=== PATIENT | female | born 1945 | race Caucasian/White ===

== ENCOUNTER 2023-06-25 12:53 | Inpatient (IN) | payer MEDICARE ==
[~2023-06-25] VITALS: Ht 172.7 cm; Wt 66.2 kg
[2023-06-25] MEDS ORDERED: ONDANSETRON 4 MG/2 ML VIAL ONE (13:06)
[2023-06-25] MEDS ORDERED: MORPHINE SULFATE 4 MG/1 ML DISP.SYRIN ONE ×2 (13:07→14:12)
[2023-06-25] MEDS: ONDANSETRON 4 MG/2 ML VIAL IV ONE (13:07)
[2023-06-25] MEDS: MORPHINE SULFATE 4 MG/1 ML DISP.SYRIN IV ONE ×2 (13:10→14:18)
[2023-06-25] MEDS ORDERED: SIMV-46 PO (14:34)
[2023-06-25] MEDS ORDERED: LISI40TA13 PO (14:34)
[2023-06-25 15:14] LABS: ALBUMIN 3.5 g/dL (3.4-5.0); BILIRUBIN,TOTAL 0.4 mg/dL (0.2-1.0); CALCIUM 8.7 mg/dL (8.5-10.1); CREATININE 0.7 mg/dL (0.6-1.3); POTASSIUM 4.2 mmol/L (3.5-5.1); TOTAL PROTEIN, SERUM 6.7 g/dL (6.4-8.2)
[2023-06-25 15:19] LABS: MEAN CORPUSCULAR VOLUME 82.4 fL (75.5-95.3)
[2023-06-25 15:29] LABS: BASOPHILS % (AUTO) 2.1 % (0.0-2.0); EOSINOPHILS % (AUTO) 3.3 % (0.0-7.0); HEMATOCRIT 37.9 % (31.2-41.9); LYMPHOCYTES # (AUTO) 0.5 K/uL (0.8-4.8); LYMPHOCYTES % (AUTO) 62.9 % (20.5-51.5); MEAN CORPUSCULAR HEMOGLOBIN 28.3 uug (24.7-32.8); MEAN CORPUSCULAR HGB CONC 34 g/dL (32.3-35.6); NEUTROPHILS # (AUTO) 0.2 K/uL (1.8-8.9); NEUTROPHILS % (AUTO) 27.7 % (38.5-71.5); PLATELET COUNT (AUTO) 118 K/uL (179-408); RED CELL DISTRIBUTION WIDTH 14.6 % (12.3-17.7)
[2023-06-25 15:31] LABS: DIFFERENTIAL COMMENT 1
[2023-06-25 15:33] LABS: WHITE BLOOD COUNT (AUTO) 0.9 K/uL (3.8-11.8)
[2023-06-25 16:51] LABS: LYMPHOCYTES % (MANUAL) 64 % (20-40); MONOCYTES % (MANUAL) 9 % (2-10); NEUTROPHILS % (MANUAL) 27 % (42-75)
[2023-06-25 16:52] LABS: PLATELET ESTIMATE DECREASED
[2023-06-25 16:53] LABS: ANISOCYTOSIS 1+; OVALOCYTES 1+
[2023-06-25] MEDS: DOCUSATE SODIUM 100 MG CAPSULE PO SCH (20:47)
[2023-06-25] MEDS: BACITRACIN/POLYMYXIN B OINT 15 GM TUBE TOP SCH (20:52)
[2023-06-25] MEDS: HYDROCODONE/APAP 5-325MG TABLET PO PRN (21:39)
[2023-06-26 00:30] VITALS: BP 111/76; TEMP 98.6
[2023-06-26] MEDS: MORPHINE SULFATE 2 MG/1 ML DISP.SYRIN IV PRN (02:21)
[2023-06-26] MEDS: ONDANSETRON 4 MG/2 ML VIAL IV PRN (02:30)
[2023-06-26 05:29] VITALS: BP 106/63; TEMP 98.6
[2023-06-26 07:19] LABS: BASOPHILS % (AUTO) 2.2 % (0.0-2.0); HEMATOCRIT 31.5 % (31.2-41.9); LYMPHOCYTES # (AUTO) 0.5 K/uL (0.8-4.8); LYMPHOCYTES % (AUTO) 52.7 % (20.5-51.5); MEAN CORPUSCULAR HEMOGLOBIN 28.6 uug (24.7-32.8); MEAN CORPUSCULAR HGB CONC 35 g/dL (32.3-35.6); MEAN CORPUSCULAR VOLUME 81.9 fL (75.5-95.3); MONOCYTES # (AUTO) 0.2 K/uL (0.1-1.30); NEUTROPHILS # (AUTO) 0.3 K/uL (1.8-8.9); NEUTROPHILS % (AUTO) 24.1 % (38.5-71.5); PLATELET COUNT (AUTO) 120 K/uL (179-408); RED BLOOD CELL COUNT(AUTO) 3.84 MIL/uL (3.63-4.92); RED CELL DISTRIBUTION WIDTH 14.4 % (12.3-17.7)
[2023-06-26 07:30] VITALS: BP 101/58; TEMP 98.1; O2SAT 96
[2023-06-26 07:34] LABS: ALBUMIN 2.9 g/dL (3.4-5.0); BILIRUBIN,TOTAL 0.6 mg/dL (0.2-1.0); CALCIUM 8.3 mg/dL (8.5-10.1); CREATININE 0.7 mg/dL (0.6-1.3); MAGNESIUM 1.7 mg/dL (1.8-2.4); PHOSPHOROUS 3.6 mg/dL (2.5-4.9); POTASSIUM 4.1 mmol/L (3.5-5.1); TOTAL PROTEIN, SERUM 5.8 g/dL (6.4-8.2)
[2023-06-26 08:16] LABS: DIFFERENTIAL COMMENT 1
[2023-06-26] MEDS: PANTOPRAZOLE SODIUM 40 MG VIAL IV SCH (09:05)
[2023-06-26 09:10] LABS: LYMPHOCYTES % (MANUAL) 58 % (20-40); MONOCYTES % (MANUAL) 16 % (2-10); NEUTROPHILS % (MANUAL) 26 % (42-75); PLATELET ESTIMATE DECREASED
[2023-06-26] MEDS: MAGNESIUM SULFATE/D5W 100 ML IV SCH (10:27)
[2023-06-26 11:14] VITALS: BP 114/63; TEMP 99.9; O2SAT 96
[2023-06-26] MEDS ORDERED: FILGRASTIM 300 MCG/ML VIAL SUBCUT ONE (12:45)
[2023-06-26 13:41] LABS: THYROID STIMULATING HORMONE 1.731 mIU/mL (0.358-3.740)
[2023-06-26] MEDS: TBO-FILGRASTIM 300 MCG/0.5 ML SYRINGE SQ ONE (13:57)
[2023-06-26] MEDS: ENOXAPARIN SODIUM 40 MG/0.4 ML DISP.SYRIN SQ SCH (13:58)
[2023-06-26 14:07] LABS: *BILIRUBIN,URIN 1+ (NEGATIVE); *BLOOD, URINE TRACE (NEGATIVE); *CLARITY,URINE CLEAR (CLEAR); *COLOR,URINE YELLOW (YELLOW); *KETONES,URINE 1+ (NEGATIVE); *PROTEIN,URINE NEGATIVE (NEGATIVE); *UROBILINOGEN,URINE 0.2 E.U./dl (NORMAL); LEUKOCYTE ESTERASE ,URINE NEGATIVE (NEGATIVE); NITRITE, URINE NEGATIVE (NEGATIVE); PH,URINE 5.5 (5.0-8.0); UGLUCOSE NEGATIVE (NEGATIVE)
[2023-06-26 14:56] LABS: BACTERIA,URINE FEW /HPF (NONE SEEN); SQUAMOUS EPITHELIAL CELL,UR FEW /HPF (NONE SEEN); WBC,URINE 0-3 /HPF (0-3)
[2023-06-26] MEDS: ACETAMINOPHEN 325 MG TABLET PO PRN (15:29)
[2023-06-26 15:44] VITALS: BP 123/62; TEMP 100.8; O2SAT 96
[2023-06-26] MEDS: CEFEPIME HCL 1 G in IV DEXTROSE 5% 50 ML IV SCH (16:50)
[2023-06-26 19:45] VITALS: BP 110/61; TEMP 98.5; O2SAT 98
[2023-06-26] MEDS: VANCOMYCIN IV 1,000 MG in IV DEXTROSE 5% 250 ML IV SCH (22:04)
[2023-06-27] VITALS (8 sets, daily range): BP systolic 102–125; BP diastolic 57–65; TEMP 97.3–99.2; O2SAT 93–100
[2023-06-27] MEDS ORDERED: VANCOMYCIN 1000 MG VIAL ONE (06:06)
[2023-06-27] MEDS ORDERED: FENTANYL CITRATE 100 MCG/2 ML AMPUL ONE ×2 (06:34→07:40)
[2023-06-27] MEDS ORDERED: MIDAZOLAM HCL 2 MG/2 ML VIAL ONE (06:35)
[2023-06-27 06:43] LABS: CALCIUM 8.2 mg/dL (8.5-10.1); CARBON DIOXIDE 25 mmol/L (21-32); CHLORIDE 100 mmol/L (98-107); CREATININE 0.7 mg/dL (0.6-1.3); GLUCOSE 133 mg/dL (74-106); SODIUM SERUM 133 mmol/L (136-145); UREA NITROGEN, BLOOD 12 mg/dL (7-18)
[2023-06-27 06:51] LABS: BASOPHILS % (AUTO) 0.2 % (0.0-2.0); HEMATOCRIT 29.5 % (31.2-41.9); HEMOGLOBIN 10.5 g/dL (10.9-14.3); LYMPHOCYTES # (AUTO) 0.4 K/uL (0.8-4.8); LYMPHOCYTES % (AUTO) 6.1 % (20.5-51.5); MEAN CORPUSCULAR HEMOGLOBIN 29.3 uug (24.7-32.8); MEAN CORPUSCULAR HGB CONC 36 g/dL (32.3-35.6); MEAN CORPUSCULAR VOLUME 82.1 fL (75.5-95.3); MONOCYTES # (AUTO) 0.5 K/uL (0.1-1.30); MONOCYTES % (AUTO) 6.9 % (0.0-11.0); NEUTROPHILS # (AUTO) 6.2 K/uL (1.8-8.9); NEUTROPHILS % (AUTO) 86.8 % (38.5-71.5); PLATELET COUNT (AUTO) 99 K/uL (179-408); RED BLOOD CELL COUNT(AUTO) 3.59 MIL/uL (3.63-4.92); RED CELL DISTRIBUTION WIDTH 14.9 % (12.3-17.7); WHITE BLOOD COUNT (AUTO) 7.2 K/uL (3.8-11.8)
[2023-06-27 06:56] LABS: DIFFERENTIAL COMMENT 1
[2023-06-27 07:20] LABS: MAGNESIUM 1.8 mg/dL (1.8-2.4); PHOSPHOROUS 3.1 mg/dL (2.5-4.9)
[2023-06-27 07:35] LABS: C-REACTIVE PROTEIN 15.6 mg/dL (0.00-0.30)
[2023-06-27 08:07] LABS: ALBUMIN 2.7 g/dL (3.4-5.0); BILIRUBIN,DIRECT 0.1 mg/dL (0.0-0.2); BILIRUBIN,TOTAL 0.7 mg/dL (0.2-1.0); TOTAL PROTEIN, SERUM 6.1 g/dL (6.4-8.2)
[2023-06-27] MEDS ORDERED: BUPIVACAINE PF 0.5% 30 ML VIAL ONE (08:31)
[2023-06-27 09:03] LABS: *RHEUMATOID FACTOR SCREEN NEGATIVE (NEGATIVE)
[2023-06-27] MEDS ORDERED: HYDROMORPHONE 1 MG/1 ML DISP.SYRIN ONE (09:09)
[2023-06-27] MEDS ORDERED: IV D5W-0.45% NS +20 KCL 1,000 ML IV ONE (09:14)
[2023-06-27] MEDS: IV D5W-0.45% NS +20 KCL 1,000 ML IV PRN (10:30)
[2023-06-27 11:33] LABS: HIV-1/2 ANTIBODY NON REACTIVE (NONREACTIVE)
[2023-06-27 11:34] LABS: HIV-1 p24 ANTIGEN NON REACTIVE (NONREACTIVE)
[2023-06-27] MEDS ORDERED: TBO-FILGRASTIM 300 MCG/0.5 ML SYRINGE SQ SCH (14:00)
[2023-06-27] MEDS: MORPHINE SULFATE 4 MG/1 ML DISP.SYRIN IV PRN (15:44)
[2023-06-27] MEDS: HYDROCODONE/APAP 10-325 MG TABLET PO PRN (20:30)
[2023-06-28 04:04] VITALS: O2SAT 99
[2023-06-28 06:11] LABS: FOLATE (FOLIC ACID), SERUM 10.1 ng/mL (>3.0)
[2023-06-28 06:13] VITALS: BP 124/61; TEMP 98.5; O2SAT 94
[2023-06-28 08:19] LABS: *IMMUNOGLOBULIN G, SERUM 676 mg/dL (586-1602); IMMUNOGLOBULIN A, SERUM 143 mg/dL (64-422); IMMUNOGLOBULIN M, SERUM 55 mg/dL (26-217)
[2023-06-28] MEDS ORDERED: ENOXAPARIN SODIUM 40 MG/0.4 ML DISP.SYRIN SQ SCH (09:00)
[2023-06-28 09:10] LABS: BASOPHILS % (AUTO) 0.6 % (0.0-2.0); EOSINOPHILS % (AUTO) 0.1 % (0.0-7.0); HEMATOCRIT 26.8 % (31.2-41.9); HEMOGLOBIN 9.6 g/dL (10.9-14.3); LYMPHOCYTES # (AUTO) 0.4 K/uL (0.8-4.8); LYMPHOCYTES % (AUTO) 9.5 % (20.5-51.5); MEAN CORPUSCULAR HEMOGLOBIN 28.9 uug (24.7-32.8); MEAN CORPUSCULAR HGB CONC 36 g/dL (32.3-35.6); MEAN CORPUSCULAR VOLUME 81.2 fL (75.5-95.3); MONOCYTES # (AUTO) 0.6 K/uL (0.1-1.30); MONOCYTES % (AUTO) 16.4 % (0.0-11.0); NEUTROPHILS # (AUTO) 2.9 K/uL (1.8-8.9); NEUTROPHILS % (AUTO) 73.4 % (38.5-71.5); PLATELET COUNT (AUTO) 121 K/uL (179-408); RED BLOOD CELL COUNT(AUTO) 3.31 MIL/uL (3.63-4.92); RED CELL DISTRIBUTION WIDTH 14.4 % (12.3-17.7); WHITE BLOOD COUNT (AUTO) 3.9 K/uL (3.8-11.8)
[2023-06-28 09:11] LABS: *ANTI-SCLERODERMA-70 AB <0.2 AI (0.0-0.9); *RNP ANTIBODIES 0.2 AI (0.0-0.9); *SJOGREN'S ANTI-SS-A <0.2 AI (0.0-0.9); *SJOGREN'S ANTI-SS-B <0.2 AI (0.0-0.9); *SMITH ANTIBODIES <0.2 AI (0.0-0.9); ANTI-DNA(DS) AB, QN 6 IU/mL (0-9); ANTI-NUCLEAR AB DIRECT Negative (Negative); HEPATITIS B SURFACE AB, QUAL Non Reactive (.); HEPATITIS B SURFACE AG Negative (Negative); HEPATITIS C VIRUS ANTIBODY Non Reactive (Non Reactive)
[2023-06-28 09:25] LABS: CREATININE 0.7 mg/dL (0.6-1.3); POTASSIUM 4.5 mmol/L (3.5-5.1)
[2023-06-28 09:47] LABS: DIFFERENTIAL COMMENT 1
[2023-06-28] MEDS: ENOXAPARIN SODIUM 40 MG/0.4 ML DISP.SYRIN SQ SCH (11:08)
[2023-06-28 11:14] VITALS: BP 110/53; TEMP 98.3; O2SAT 96
[2023-06-28 13:07] LABS: A/G RATIO 1.1 (0.7-1.7); ALBUMIN 2.8 g/dL (2.9-4.4); ALPHA-1-GLOBULIN 0.4 g/dL (0.0-0.4); ALPHA-2-GLOBULIN 0.7 g/dL (0.4-1.0); BETA GLOBULIN 0.8 g/dL (0.7-1.3); GAMMA GLOBULIN 0.7 g/dL (0.4-1.8); GLOBULIN, TOTAL 2.6 g/dL (2.2-3.9); M-SPIKE Not Observed g/dL (Not Observed)
[2023-06-28 14:41] LABS: *SODIUM RNDM,URINE 13 mmol/L (40-220)
[2023-06-28 15:17] VITALS: BP 110/70; TEMP 98.5; O2SAT 94
[2023-06-28 16:07] LABS: BAND % (MANUAL) 2 % (0-10); LYMPHOCYTES % (MANUAL) 8 % (20-40); MONOCYTES % (MANUAL) 13 % (2-10); NEUTROPHILS % (MANUAL) 77 % (42-75)
[2023-06-28 16:08] LABS: ANISOCYTOSIS 1+; PLATELET ESTIMATE DECREASED
[2023-06-28 16:31] VITALS: BP 122/61; TEMP 99.2; O2SAT 100
[2023-06-28 20:00] VITALS: BP 97/53; TEMP 99.3; O2SAT 96
[2023-06-29] MEDS: PANTOPRAZOLE SODIUM 40 MG TABLET.DR PO SCH (06:06)
[2023-06-29 07:26] LABS: BASOPHILS % (AUTO) 0.4 % (0.0-2.0); EOSINOPHILS % (AUTO) 1.1 % (0.0-7.0); HEMATOCRIT 24.1 % (31.2-41.9); HEMOGLOBIN 8.6 g/dL (10.9-14.3); LYMPHOCYTES # (AUTO) 0.4 K/uL (0.8-4.8); LYMPHOCYTES % (AUTO) 14.5 % (20.5-51.5); MEAN CORPUSCULAR HEMOGLOBIN 28.8 uug (24.7-32.8); MEAN CORPUSCULAR HGB CONC 36 g/dL (32.3-35.6); MEAN CORPUSCULAR VOLUME 80.8 fL (75.5-95.3); MONOCYTES # (AUTO) 0.6 K/uL (0.1-1.30); MONOCYTES % (AUTO) 21.5 % (0.0-11.0); NEUTROPHILS # (AUTO) 1.7 K/uL (1.8-8.9); NEUTROPHILS % (AUTO) 62.5 % (38.5-71.5); PLATELET COUNT (AUTO) 105 K/uL (179-408); RED BLOOD CELL COUNT(AUTO) 2.99 MIL/uL (3.63-4.92); RED CELL DISTRIBUTION WIDTH 14.3 % (12.3-17.7); WHITE BLOOD COUNT (AUTO) 2.7 K/uL (3.8-11.8)
[2023-06-29 07:54] LABS: DIFFERENTIAL COMMENT 1
[2023-06-29 07:55] LABS: CALCIUM 8.1 mg/dL (8.5-10.1); CREATININE 0.7 mg/dL (0.6-1.3); MAGNESIUM 1.9 mg/dL (1.8-2.4); POTASSIUM 4.2 mmol/L (3.5-5.1)
[2023-06-29 08:12] LABS: URIC ACID 2.3 mg/dL (2.6-6.0)
[2023-06-29 08:47] LABS: THYROID STIMULATING HORMONE 0.863 mIU/mL (0.358-3.740)
[2023-06-29 12:00] VITALS: BP 112/60; TEMP 97.7; O2SAT 85
[2023-06-29 13:02] LABS: BAND % (MANUAL) 1 % (0-10); LYMPHOCYTES % (MANUAL) 18 % (20-40); MONOCYTES % (MANUAL) 16 % (2-10); NEUTROPHILS % (MANUAL) 65 % (42-75); PLATELET ESTIMATE DECREASED
[2023-06-29 13:03] LABS: ANISOCYTOSIS 1+
[2023-06-29] MEDS: SOD FERRIC GLUC COMPLX/SUCROSE 125 MG in IV NORMAL SALINE 100 ML IV SCH (13:13)
== END 2023-06-29 15:26 | DRG 481 ==
LOC: ER 12:56 → MEDSURG3 16:26 → TELE3 17:24 → MEDSURG3 06-27 08:29
PROVIDERS: ADMIT Internal Medicine; ATTEND Internal Medicine
PROC: 0QS706Z Reposition Left Upper Femur with Intramedullary Internal Fixation Device, Open Approach (ICD-10-PCS; principal; 2023-06-27)
DX: S72.142A Displaced intertrochanteric fracture of left femur, initial encounter for closed fracture (principal); C91.Z0 Other lymphoid leukemia not having achieved remission; D68.59 Other primary thrombophilia; L03.115 Cellulitis of right lower limb; N13.30 Unspecified hydronephrosis; E87.1 Hypo-osmolality and hyponatremia; W01.0XXA Fall on same level from slipping, tripping and stumbling without subsequent striking against object, initial encounter; Y92.480 Sidewalk as the place of occurrence of the external cause; E78.5 Hyperlipidemia, unspecified; Z74.09 Other reduced mobility; I07.1 Rheumatic tricuspid insufficiency; Z79.899 Other long term (current) drug therapy; R50.81 Fever presenting with conditions classified elsewhere; S80.211A Abrasion, right knee, initial encounter; Z88.2 Allergy status to sulfonamides; I44.0 Atrioventricular block, first degree; D53.9 Nutritional anemia, unspecified; I11.9 Hypertensive heart disease without heart failure; I25.2 Old myocardial infarction; D70.9 Neutropenia, unspecified; Z98.890 Other specified postprocedural states; Z87.42 Personal history of other diseases of the female genital tract; Z79.620 Long term (current) use of immunosuppressive biologic
CPT/HCPCS: 36415; 70030-TC; 71045; 72170; 73503; 73560; 76700; 82746; 82784; 83550; 83615; 83735; 84100; 84155; 84165; 84300; 84443; 84550; 85025; 85610; 85730; 86038; 86140; 86334; 86430; 86706; 86803; 86850; 86900; 86901; 87040; 87340; 87806; 93005; 93307; 94760; A4606; A4663; C9113; G0378; J0692; J1170; J1447; J1650; J2250; J2270; J2405; J2916; J3010; J3370; J3475; J3490; J7050

== ENCOUNTER 2023-06-29 15:25 | Inpatient (IN) | payer MEDICARE ==
[~2023-06-29] VITALS: Ht 175.3 cm; Wt 63.0 kg
[~2023-06-29 15:25] MED LIST: LISI40TA13 PO; SIMV-46 PO
[2023-06-29 16:51] VITALS: BP 110/64; TEMP 98
[2023-06-29] MEDS: NEUTRA PHOS PACKET PO ONE (17:50)
[2023-06-29 20:46] VITALS: BP 112/61; TEMP 98.9; O2SAT 97
[2023-06-30] MEDS: HYDROCODONE/APAP 10-325 MG TABLET PO PRN (01:14)
[2023-06-30 05:31] VITALS: BP 115/69; TEMP 98.6; O2SAT 97
[2023-06-30 08:41] VITALS: BP 105/49
[2023-06-30] MEDS: LISINOPRIL 20 MG TABLET PO SCH ×2 (08:49→22:08)
[2023-06-30 16:00] VITALS: BP 107/56; TEMP 98.9; O2SAT 97
[2023-06-30] MEDS: SIMVASTATIN 20 MG TABLET PO SCH ×2 (18:06→22:09)
[2023-06-30] MEDS: SOD FERRIC GLUC COMPLX/SUCROSE 125 MG in IV NORMAL SALINE 100 ML IV SCH (18:06)
[2023-06-30 20:18] VITALS: BP 100/59; TEMP 98; O2SAT 94
[2023-06-30] MEDS: DOCUSATE SODIUM 100 MG CAPSULE PO SCH (22:09)
[2023-06-30] MEDS: BACITRACIN/POLYMYXIN B OINT 15 GM TUBE TOP SCH (22:18)
[2023-07-01 06:15] VITALS: BP 122/56; TEMP 98.2; O2SAT 94
[2023-07-01 07:41] LABS: HEMOGLOBIN 8.1 g/dL (10.9-14.3); MONOCYTES # (AUTO) 0.2 K/uL (0.1-1.30); NEUTROPHILS # (AUTO) 0.9 K/uL (1.8-8.9)
[2023-07-01] MEDS: PANTOPRAZOLE SODIUM 40 MG TABLET.DR PO SCH (07:44)
[2023-07-01 07:46] LABS: BASOPHILS % (AUTO) 0.6 % (0.0-2.0); EOSINOPHILS % (AUTO) 0.6 % (0.0-7.0); HEMATOCRIT 23.2 % (31.2-41.9); LYMPHOCYTES # (AUTO) 0.6 K/uL (0.8-4.8); LYMPHOCYTES % (AUTO) 35.3 % (20.5-51.5); MEAN CORPUSCULAR HEMOGLOBIN 28.3 uug (24.7-32.8); MEAN CORPUSCULAR HGB CONC 35 g/dL (32.3-35.6); MEAN CORPUSCULAR VOLUME 81.4 fL (75.5-95.3); MONOCYTES % (AUTO) 13.3 % (0.0-11.0); NEUTROPHILS % (AUTO) 50.2 % (38.5-71.5); PLATELET COUNT (AUTO) 145 K/uL (179-408); RED BLOOD CELL COUNT(AUTO) 2.85 MIL/uL (3.63-4.92); RED CELL DISTRIBUTION WIDTH 14.3 % (12.3-17.7)
[2023-07-01 07:55] VITALS: BP 114/65; TEMP 98.6; O2SAT 98
[2023-07-01 07:57] LABS: DIFFERENTIAL COMMENT 1
[2023-07-01 07:58] LABS: CALCIUM 8.3 mg/dL (8.5-10.1); CREATININE 0.7 mg/dL (0.6-1.3); POTASSIUM 4.4 mmol/L (3.5-5.1)
[2023-07-01 07:59] LABS: WHITE BLOOD COUNT (AUTO) 1.7 K/uL (3.8-11.8)
[2023-07-01] MEDS: buPROPion XL 150 MG TAB.SR.24H PO SCH (09:58)
[2023-07-01 14:56] LABS: BAND % (MANUAL) 1 % (0-10); LYMPHOCYTES % (MANUAL) 35 % (20-40); MONOCYTES % (MANUAL) 10 % (2-10); NEUTROPHILS % (MANUAL) 54 % (42-75)
[2023-07-01 14:57] LABS: ANISOCYTOSIS 1+; PLATELET ESTIMATE ADEQUATE
[2023-07-01] MEDS: ENOXAPARIN SODIUM 40 MG/0.4 ML DISP.SYRIN SQ SCH (15:30)
[2023-07-01 15:35] VITALS: BP 125/62; TEMP 97.7; O2SAT 98
[2023-07-02 08:09] LABS: EOSINOPHILS % (AUTO) 0.7 % (0.0-7.0); HEMATOCRIT 23.6 % (31.2-41.9); HEMOGLOBIN 8.3 g/dL (10.9-14.3); LYMPHOCYTES # (AUTO) 0.6 K/uL (0.8-4.8); LYMPHOCYTES % (AUTO) 33.2 % (20.5-51.5); MEAN CORPUSCULAR HEMOGLOBIN 28.6 uug (24.7-32.8); MEAN CORPUSCULAR HGB CONC 35 g/dL (32.3-35.6); MEAN CORPUSCULAR VOLUME 81.7 fL (75.5-95.3); MONOCYTES # (AUTO) 0.3 K/uL (0.1-1.30); MONOCYTES % (AUTO) 15.3 % (0.0-11.0); NEUTROPHILS # (AUTO) 0.8 K/uL (1.8-8.9); NEUTROPHILS % (AUTO) 49.8 % (38.5-71.5); PLATELET COUNT (AUTO) 160 K/uL (179-408); RED BLOOD CELL COUNT(AUTO) 2.89 MIL/uL (3.63-4.92); RED CELL DISTRIBUTION WIDTH 14.7 % (12.3-17.7)
[2023-07-02 08:26] LABS: CALCIUM 8.2 mg/dL (8.5-10.1); CARBON DIOXIDE 30 mmol/L (21-32); CHLORIDE 102 mmol/L (98-107); CREATININE 0.6 mg/dL (0.6-1.3); GLUCOSE 103 mg/dL (74-106); POTASSIUM 4.5 mmol/L (3.5-5.1); SODIUM SERUM 137 mmol/L (136-145); UREA NITROGEN, BLOOD 12 mg/dL (7-18)
[2023-07-02 08:28] LABS: DIFFERENTIAL COMMENT 1; WHITE BLOOD COUNT (AUTO) 1.7 K/uL (3.8-11.8)
[2023-07-02 08:44] VITALS: BP 131/59; TEMP 98; O2SAT 96
[2023-07-02 16:00] VITALS: BP 147/63; TEMP 97.6; O2SAT 97
[2023-07-02] MEDS: ACETAMINOPHEN 325 MG TABLET PO PRN (16:38)
[2023-07-02] MEDS: MAGNESIUM HYDROXIDE 30 ML LIQUID UDC PO PRN (16:38)
[2023-07-02 16:55] VITALS: BP 129/67; O2SAT 73
[2023-07-02 19:34] LABS: BAND % (MANUAL) 13 % (0-10); LYMPHOCYTES % (MANUAL) 32 % (20-40); MONOCYTES % (MANUAL) 14 % (2-10); NEUTROPHILS % (MANUAL) 40 % (42-75)
[2023-07-02 19:35] LABS: EOSINOPHILS % (MANUAL) 1 % (0-8); PLATELET ESTIMATE DECREASED
[2023-07-02 19:59] VITALS: BP 156/80; TEMP 99; O2SAT 94
[2023-07-03 06:51] VITALS: BP 123/72; TEMP 97.8; O2SAT 96
[2023-07-03 07:34] VITALS: BP 132/62; TEMP 97.8; O2SAT 96
[2023-07-03 08:09] LABS: BASOPHILS % (AUTO) 0.7 % (0.0-2.0); EOSINOPHILS % (AUTO) 1.8 % (0.0-7.0); HEMATOCRIT 25.4 % (31.2-41.9); HEMOGLOBIN 8.8 g/dL (10.9-14.3); LYMPHOCYTES # (AUTO) 0.6 K/uL (0.8-4.8); LYMPHOCYTES % (AUTO) 34.6 % (20.5-51.5); MEAN CORPUSCULAR HEMOGLOBIN 28.6 uug (24.7-32.8); MEAN CORPUSCULAR HGB CONC 35 g/dL (32.3-35.6); MEAN CORPUSCULAR VOLUME 82.3 fL (75.5-95.3); MONOCYTES # (AUTO) 0.2 K/uL (0.1-1.30); MONOCYTES % (AUTO) 12.1 % (0.0-11.0); NEUTROPHILS # (AUTO) 0.8 K/uL (1.8-8.9); NEUTROPHILS % (AUTO) 50.8 % (38.5-71.5); PLATELET COUNT (AUTO) 198 K/uL (179-408); RED BLOOD CELL COUNT(AUTO) 3.09 MIL/uL (3.63-4.92); RED CELL DISTRIBUTION WIDTH 14.7 % (12.3-17.7)
[2023-07-03 08:17] LABS: CALCIUM 8.7 mg/dL (8.5-10.1); CREATININE 0.7 mg/dL (0.6-1.3); POTASSIUM 4.3 mmol/L (3.5-5.1)
[2023-07-03 08:42] LABS: DIFFERENTIAL COMMENT 1; WHITE BLOOD COUNT (AUTO) 1.6 K/uL (3.8-11.8)
[2023-07-03 08:56] VITALS: BP 122/67; TEMP 97.6; O2SAT 97
[2023-07-03 13:32] LABS: BAND % (MANUAL) 1 % (0-10); LYMPHOCYTES % (MANUAL) 39 % (20-40); MONOCYTES % (MANUAL) 12 % (2-10); NEUTROPHILS % (MANUAL) 48 % (42-75)
[2023-07-03 13:33] LABS: ANISOCYTOSIS 1+; PLATELET ESTIMATE ADEQUATE
[2023-07-03 15:36] VITALS: BP 108/59; TEMP 97.9; O2SAT 99
[2023-07-03] MEDS: ENSURE ENLIVE (VAN) 240 ML LIQUID PO SCH (17:58)
[2023-07-03 20:48] VITALS: BP 140/80; TEMP 98.2; O2SAT 95
[2023-07-04 05:42] VITALS: BP 110/61; TEMP 98.1; O2SAT 94
[2023-07-04 07:19] LABS: BASOPHILS % (AUTO) 0.7 % (0.0-2.0); EOSINOPHILS % (AUTO) 0.8 % (0.0-7.0); HEMATOCRIT 23.8 % (31.2-41.9); HEMOGLOBIN 8.3 g/dL (10.9-14.3); LYMPHOCYTES # (AUTO) 0.8 K/uL (0.8-4.8); LYMPHOCYTES % (AUTO) 41.1 % (20.5-51.5); MEAN CORPUSCULAR HGB CONC 35 g/dL (32.3-35.6); MEAN CORPUSCULAR VOLUME 83.6 fL (75.5-95.3); MONOCYTES # (AUTO) 0.3 K/uL (0.1-1.30); MONOCYTES % (AUTO) 13.8 % (0.0-11.0); NEUTROPHILS # (AUTO) 0.8 K/uL (1.8-8.9); NEUTROPHILS % (AUTO) 43.6 % (38.5-71.5); PLATELET COUNT (AUTO) 188 K/uL (179-408); RED BLOOD CELL COUNT(AUTO) 2.84 MIL/uL (3.63-4.92); RED CELL DISTRIBUTION WIDTH 15.2 % (12.3-17.7)
[2023-07-04 07:21] LABS: CALCIUM 8.5 mg/dL (8.5-10.1); CREATININE 0.6 mg/dL (0.6-1.3); POTASSIUM 4.5 mmol/L (3.5-5.1)
[2023-07-04 07:51] LABS: DIFFERENTIAL COMMENT 1; WHITE BLOOD COUNT (AUTO) 1.9 K/uL (3.8-11.8)
[2023-07-04 13:38] LABS: LYMPHOCYTES % (MANUAL) 46 % (20-40); MONOCYTES % (MANUAL) 12 % (2-10); NEUTROPHILS % (MANUAL) 42 % (42-75)
[2023-07-04 13:39] LABS: ANISOCYTOSIS 1+; PLATELET ESTIMATE ADEQUATE
[2023-07-04 16:00] VITALS: BP 124/52; TEMP 98.1; O2SAT 98
[2023-07-04] MEDS: HYDROCODONE/APAP 5-325MG TABLET PO ONE (16:40)
[2023-07-04 20:00] VITALS: BP 116/58; TEMP 98.2; O2SAT 96
[2023-07-04] MEDS: SIMVASTATIN 10 MG TABLET PO SCH (20:38)
[2023-07-05 06:00] VITALS: BP 121/60; TEMP 98.3; O2SAT 96
[2023-07-05 07:25] LABS: BASOPHILS % (AUTO) 0.5 % (0.0-2.0); EOSINOPHILS % (AUTO) 0.7 % (0.0-7.0); HEMATOCRIT 24.4 % (31.2-41.9); HEMOGLOBIN 8.5 g/dL (10.9-14.3); LYMPHOCYTES # (AUTO) 0.7 K/uL (0.8-4.8); LYMPHOCYTES % (AUTO) 28.5 % (20.5-51.5); MEAN CORPUSCULAR HGB CONC 35 g/dL (32.3-35.6); MEAN CORPUSCULAR VOLUME 83.4 fL (75.5-95.3); MONOCYTES # (AUTO) 0.2 K/uL (0.1-1.30); MONOCYTES % (AUTO) 10.5 % (0.0-11.0); NEUTROPHILS # (AUTO) 1.4 K/uL (1.8-8.9); NEUTROPHILS % (AUTO) 59.8 % (38.5-71.5); PLATELET COUNT (AUTO) 209 K/uL (179-408); RED BLOOD CELL COUNT(AUTO) 2.92 MIL/uL (3.63-4.92); RED CELL DISTRIBUTION WIDTH 15.2 % (12.3-17.7); WHITE BLOOD COUNT (AUTO) 2.3 K/uL (3.8-11.8)
[2023-07-05 07:36] LABS: ALANINE AMINOTRANSFERASE 43 U/L (14-59); ALBUMIN 2.3 g/dL (3.4-5.0); ALKALINE PHOSPHATASE 73 U/L (50-136); ASPARTATE AMINOTRANSFERASE 29 U/L (15-37); BILIRUBIN,TOTAL 0.6 mg/dL (0.2-1.0); CALCIUM 8.6 mg/dL (8.5-10.1); CARBON DIOXIDE 30 mmol/L (21-32); CHLORIDE 103 mmol/L (98-107); CREATININE 0.6 mg/dL (0.6-1.3); GLUCOSE 111 mg/dL (74-106); MAGNESIUM 1.9 mg/dL (1.8-2.4); PHOSPHOROUS 3.9 mg/dL (2.5-4.9); POTASSIUM 4.5 mmol/L (3.5-5.1); SODIUM SERUM 138 mmol/L (136-145); TOTAL PROTEIN, SERUM 5.9 g/dL (6.4-8.2); UREA NITROGEN, BLOOD 15 mg/dL (7-18)
[2023-07-05 07:46] LABS: DIFFERENTIAL COMMENT 1
[2023-07-05] MEDS: PROTEIN SUPPLEMENT (PROSTAT) 30 ML LIQUID PO SCH (13:36)
[2023-07-05] MEDS: TRIAMCINOLONE ACET 0.1% CREAM 15 GM TUBE TOP SCH (15:03)
[2023-07-05 16:00] VITALS: BP 111/63; TEMP 98.1; O2SAT 97
[2023-07-05 17:57] LABS: BAND % (MANUAL) 8 % (0-10); LYMPHOCYTES % (MANUAL) 32 % (20-40); MONOCYTES % (MANUAL) 9 % (2-10); NEUTROPHILS % (MANUAL) 42 % (42-75)
[2023-07-05 17:58] LABS: ANISOCYTOSIS 1+; METAMYELOCYTES % 5 % (0-1); MYELOCYTES % 4 % (0-0); PLATELET ESTIMATE ADEQUATE
[2023-07-05 20:00] VITALS: BP 110/48; TEMP 98.2; O2SAT 100
[2023-07-06 06:18] VITALS: BP 124/59; TEMP 98.8; O2SAT 94
[2023-07-06 16:05] VITALS: BP 132/57; TEMP 98.9; O2SAT 94
[2023-07-06 20:25] VITALS: BP 111/54; TEMP 99.3; O2SAT 99
[2023-07-07 05:50] VITALS: BP 134/61; TEMP 99.3; O2SAT 95
[2023-07-07 06:57] LABS: BASOPHILS % (AUTO) 1.4 % (0.0-2.0); EOSINOPHILS % (AUTO) 0.6 % (0.0-7.0); HEMATOCRIT 26.2 % (31.2-41.9); HEMOGLOBIN 9.1 g/dL (10.9-14.3); LYMPHOCYTES # (AUTO) 0.8 K/uL (0.8-4.8); LYMPHOCYTES % (AUTO) 33.5 % (20.5-51.5); MEAN CORPUSCULAR HEMOGLOBIN 29.1 uug (24.7-32.8); MEAN CORPUSCULAR HGB CONC 35 g/dL (32.3-35.6); MEAN CORPUSCULAR VOLUME 83.9 fL (75.5-95.3); MONOCYTES # (AUTO) 0.2 K/uL (0.1-1.30); NEUTROPHILS # (AUTO) 1.3 K/uL (1.8-8.9); NEUTROPHILS % (AUTO) 55.5 % (38.5-71.5); PLATELET COUNT (AUTO) 190 K/uL (179-408); RED BLOOD CELL COUNT(AUTO) 3.12 MIL/uL (3.63-4.92); RED CELL DISTRIBUTION WIDTH 15.8 % (12.3-17.7); WHITE BLOOD COUNT (AUTO) 2.4 K/uL (3.8-11.8)
[2023-07-07 06:58] LABS: CALCIUM 8.7 mg/dL (8.5-10.1); CREATININE 0.6 mg/dL (0.6-1.3); POTASSIUM 4.3 mmol/L (3.5-5.1)
[2023-07-07 07:08] LABS: DIFFERENTIAL COMMENT 1
[2023-07-07 11:17] LABS: BAND % (MANUAL) 2 % (0-10); LYMPHOCYTES % (MANUAL) 42 % (20-40); MONOCYTES % (MANUAL) 11 % (2-10); MYELOCYTES % 1 % (0-0); NEUTROPHILS % (MANUAL) 44 % (42-75)
[2023-07-07 11:18] LABS: ANISOCYTOSIS 1+; PLATELET ESTIMATE ADEQUATE
[2023-07-07 16:49] VITALS: BP 121/70; TEMP 98.6; O2SAT 97
[2023-07-07 20:44] VITALS: BP 110/59; TEMP 98.8; O2SAT 97
[2023-07-08 06:22] VITALS: BP 124/66; TEMP 98.6; O2SAT 93
[2023-07-08 07:42] VITALS: BP 123/57; TEMP 98.1; O2SAT 97
[2023-07-08 07:46] LABS: BASOPHILS % (AUTO) 1.2 % (0.0-2.0); EOSINOPHILS % (AUTO) 0.5 % (0.0-7.0); HEMATOCRIT 27.4 % (31.2-41.9); HEMOGLOBIN 9.2 g/dL (10.9-14.3); LYMPHOCYTES # (AUTO) 0.8 K/uL (0.8-4.8); LYMPHOCYTES % (AUTO) 42.8 % (20.5-51.5); MEAN CORPUSCULAR HEMOGLOBIN 28.6 uug (24.7-32.8); MEAN CORPUSCULAR HGB CONC 34 g/dL (32.3-35.6); MEAN CORPUSCULAR VOLUME 85.2 fL (75.5-95.3); MONOCYTES # (AUTO) 0.1 K/uL (0.1-1.30); MONOCYTES % (AUTO) 4.7 % (0.0-11.0); NEUTROPHILS % (AUTO) 50.8 % (38.5-71.5); PLATELET COUNT (AUTO) 186 K/uL (179-408); RED BLOOD CELL COUNT(AUTO) 3.21 MIL/uL (3.63-4.92); RED CELL DISTRIBUTION WIDTH 16.7 % (12.3-17.7)
[2023-07-08 07:49] LABS: CREATININE 0.7 mg/dL (0.6-1.3); POTASSIUM 4.4 mmol/L (3.5-5.1)
[2023-07-08 08:00] LABS: DIFFERENTIAL COMMENT 1
[2023-07-08 14:33] LABS: LYMPHOCYTES % (MANUAL) 48 % (20-40); METAMYELOCYTES % 1 % (0-1); MONOCYTES % (MANUAL) 6 % (2-10); MYELOCYTES % 1 % (0-0); NEUTROPHILS % (MANUAL) 44 % (42-75); PLATELET ESTIMATE ADEQUATE
[2023-07-08 14:34] LABS: ANISOCYTOSIS 1+; HYPOCHROMASIA 1+; OVALOCYTES 1+
[2023-07-08 15:06] VITALS: BP 138/94; TEMP 98.3; O2SAT 96
[2023-07-08 20:00] VITALS: BP 136/80; TEMP 98.2; O2SAT 100
[2023-07-09 16:00] VITALS: BP 126/71; TEMP 98.5; O2SAT 99
[2023-07-09 20:13] VITALS: BP 115/53; TEMP 99.3; O2SAT 97
[2023-07-10 04:00] VITALS: BP 128/61; TEMP 98.2; O2SAT 96
[2023-07-10 07:32] LABS: BASOPHILS % (AUTO) 2.2 % (0.0-2.0); EOSINOPHILS % (AUTO) 0.9 % (0.0-7.0); HEMATOCRIT 28.6 % (31.2-41.9); HEMOGLOBIN 9.5 g/dL (10.9-14.3); LYMPHOCYTES # (AUTO) 0.8 K/uL (0.8-4.8); LYMPHOCYTES % (AUTO) 56.3 % (20.5-51.5); MEAN CORPUSCULAR HEMOGLOBIN 28.4 uug (24.7-32.8); MEAN CORPUSCULAR HGB CONC 33 g/dL (32.3-35.6); MEAN CORPUSCULAR VOLUME 85.9 fL (75.5-95.3); MONOCYTES # (AUTO) 0.1 K/uL (0.1-1.30); MONOCYTES % (AUTO) 6.1 % (0.0-11.0); NEUTROPHILS # (AUTO) 0.5 K/uL (1.8-8.9); NEUTROPHILS % (AUTO) 34.5 % (38.5-71.5); PLATELET COUNT (AUTO) 194 K/uL (179-408); RED BLOOD CELL COUNT(AUTO) 3.33 MIL/uL (3.63-4.92)
[2023-07-10 07:33] LABS: CARBON DIOXIDE 28 mmol/L (21-32); CHLORIDE 102 mmol/L (98-107); CREATININE 0.6 mg/dL (0.6-1.3); GLUCOSE 100 mg/dL (74-106); SODIUM SERUM 138 mmol/L (136-145); UREA NITROGEN, BLOOD 15 mg/dL (7-18)
[2023-07-10 07:35] VITALS: BP 124/62; TEMP 98.4; O2SAT 95
[2023-07-10 08:26] LABS: DIFFERENTIAL COMMENT 1; WHITE BLOOD COUNT (AUTO) 1.4 K/uL (3.8-11.8)
[2023-07-10 13:14] LABS: IRON, SERUM 61 ug/dL (50-175)
[2023-07-10 13:57] LABS: FERRITIN 1646 ng/mL (8-252)
[2023-07-10 15:03] LABS: BAND % (MANUAL) 3 % (0-10); NEUTROPHILS % (MANUAL) 34 % (42-75)
[2023-07-10 15:04] LABS: ANISOCYTOSIS 1+; EOSINOPHILS % (MANUAL) 1 % (0-8); LYMPHOCYTES % (MANUAL) 57 % (20-40); MONOCYTES % (MANUAL) 5 % (2-10); PLATELET ESTIMATE ADEQUATE
[2023-07-10 15:14] VITALS: BP 139/61; TEMP 98.8; O2SAT 94
[2023-07-10] MEDS ORDERED: ACETAMINOPHEN 325 MG TABLET PO PRN (18:00)
[2023-07-10] MEDS ORDERED: ACETAMINOPHEN ES 500 MG TABLET PO PRN (18:15)
[2023-07-10 21:44] VITALS: BP 137/63; TEMP 98; O2SAT 99
[2023-07-10] MEDS: ACETAMINOPHEN ES 500 MG TABLET PO PRN (22:01)
[2023-07-11 07:42] VITALS: BP 131/71; TEMP 98.5; O2SAT 90
[2023-07-11 16:00] VITALS: BP 131/73; TEMP 98.5; O2SAT 95
[2023-07-11 20:00] VITALS: BP 134/64; TEMP 98.4; O2SAT 97
[2023-07-12 00:49] VITALS: BP 134/64; TEMP 98.4; O2SAT 97
[2023-07-12 06:27] VITALS: BP 129/60; TEMP 98.2; O2SAT 97
[2023-07-12 08:00] LABS: BASOPHILS % (AUTO) 1.3 % (0.0-2.0); EOSINOPHILS % (AUTO) 0.9 % (0.0-7.0); HEMOGLOBIN 9.9 g/dL (10.9-14.3); LYMPHOCYTES # (AUTO) 0.7 K/uL (0.8-4.8); LYMPHOCYTES % (AUTO) 58.2 % (20.5-51.5); MEAN CORPUSCULAR HEMOGLOBIN 28.3 uug (24.7-32.8); MEAN CORPUSCULAR HGB CONC 33 g/dL (32.3-35.6); MEAN CORPUSCULAR VOLUME 85.4 fL (75.5-95.3); MONOCYTES # (AUTO) 0.1 K/uL (0.1-1.30); MONOCYTES % (AUTO) 9.6 % (0.0-11.0); NEUTROPHILS # (AUTO) 0.4 K/uL (1.8-8.9); PLATELET COUNT (AUTO) 178 K/uL (179-408); RED BLOOD CELL COUNT(AUTO) 3.51 MIL/uL (3.63-4.92); RED CELL DISTRIBUTION WIDTH 16.8 % (12.3-17.7)
[2023-07-12 08:08] LABS: CALCIUM 8.7 mg/dL (8.5-10.1); CREATININE 0.7 mg/dL (0.6-1.3); POTASSIUM 4.2 mmol/L (3.5-5.1)
[2023-07-12 08:11] LABS: DIFFERENTIAL COMMENT 1
[2023-07-12 08:14] LABS: WHITE BLOOD COUNT (AUTO) 1.3 K/uL (3.8-11.8)
[2023-07-12 16:00] VITALS: BP 129/78; TEMP 98.2; O2SAT 99
[2023-07-12 16:23] LABS: LYMPHOCYTES % (MANUAL) 58 % (20-40); MONOCYTES % (MANUAL) 8 % (2-10); NEUTROPHILS % (MANUAL) 34 % (42-75)
[2023-07-12 16:24] LABS: ANISOCYTOSIS 1+; HYPOCHROMASIA 1+; PLATELET ESTIMATE ADEQUATE
[2023-07-12 20:00] VITALS: TEMP 98.4
[2023-07-12 21:35] VITALS: BP 126/60
[2023-07-13 06:00] VITALS: TEMP 98.5
[2023-07-13] MEDS ORDERED: BUPR-53 PO (10:42)
[2023-07-13] MEDS ORDERED: ENOX40DI SQ (10:42)
== END 2023-07-13 15:10 | disposition home health service (06) | DRG 560 ==
PROVIDERS: ADMIT Physical Medicine & Rehabilitation Pain Medicine; ATTEND Physical Medicine & Rehabilitation
PROC: 05HC33Z Insertion of Infusion Device into Left Basilic Vein, Percutaneous Approach (ICD-10-PCS; principal; 2023-07-04)
DX: S72.142D Displaced intertrochanteric fracture of left femur, subsequent encounter for closed fracture with routine healing (principal); C91.Z0 Other lymphoid leukemia not having achieved remission; D68.59 Other primary thrombophilia; E87.1 Hypo-osmolality and hyponatremia; L97.329 Non-pressure chronic ulcer of left ankle with unspecified severity; N13.30 Unspecified hydronephrosis; S80.211D Abrasion, right knee, subsequent encounter; W18.30XD Fall on same level, unspecified, subsequent encounter; D50.9 Iron deficiency anemia, unspecified; E78.5 Hyperlipidemia, unspecified; I10 Essential (primary) hypertension; D63.0 Anemia in neoplastic disease; D69.6 Thrombocytopenia, unspecified; I80.8 Phlebitis and thrombophlebitis of other sites; Z88.2 Allergy status to sulfonamides
CPT/HCPCS: 36415; 70030-TC; 73502; 83550; 83735; 84100; 85025; 88185; 97535-GO-CO; A6209; A6213; A9150; J1650; J2916

== ENCOUNTER 2023-08-09 16:42 | Inpatient (IN) | payer MEDICARE ==
[~2023-08-09] VITALS: Ht 170.2 cm; Wt 60.8 kg
[~2023-08-09 16:42] MED LIST changes: +BUPR-53 PO; +ENOX40DI SQ
[2023-08-09] MEDS ORDERED: ENOXAPARIN SODIUM 60 MG/0.6 ML DISP.SYRIN SQ ONE (18:39)
[2023-08-09 18:42] LABS: BASOPHILS % (AUTO) 1.2 % (0.0-2.0); DIFFERENTIAL COMMENT 0; EOSINOPHILS # (AUTO) 0.2 K/uL (0.0-0.7); EOSINOPHILS % (AUTO) 12.6 % (0.0-7.0); LYMPHOCYTES # (AUTO) 0.8 K/uL (0.8-4.8); LYMPHOCYTES % (AUTO) 60.1 % (20.5-51.5); MEAN CORPUSCULAR HEMOGLOBIN 27.4 uug (24.7-32.8); MEAN CORPUSCULAR HGB CONC 33 g/dL (32.3-35.6); MEAN CORPUSCULAR VOLUME 84.4 fL (75.5-95.3); MONOCYTES # (AUTO) 0.1 K/uL (0.1-1.30); MONOCYTES % (AUTO) 10.1 % (0.0-11.0); NEUTROPHILS # (AUTO) 0.2 K/uL (1.8-8.9); PLATELET COUNT (AUTO) 152 K/uL (179-408); RED BLOOD CELL COUNT(AUTO) 4.73 MIL/uL (3.63-4.92); RED CELL DISTRIBUTION WIDTH 15.6 % (12.3-17.7)
[2023-08-09] MEDS: ENOXAPARIN SODIUM 60 MG/0.6 ML DISP.SYRIN SQ ONE (18:43)
[2023-08-09 18:44] LABS: WHITE BLOOD COUNT (AUTO) 1.4 K/uL (3.8-11.8)
[2023-08-09 18:48] LABS: CALCIUM 9.6 mg/dL (8.5-10.1); CREATININE 0.7 mg/dL (0.6-1.3); POTASSIUM 4.2 mmol/L (3.5-5.1)
[2023-08-09] MEDS ORDERED: ONDANSETRON 4 MG/2 ML VIAL IV PRN (21:15)
[2023-08-09] MEDS ORDERED: MAGNESIUM HYDROXIDE 30 ML LIQUID UDC PO PRN (21:15)
[2023-08-09] MEDS ORDERED: TEMAZEPAM 15 MG CAPSULE PO PRN (21:15)
[2023-08-09] MEDS ORDERED: HYDROCODONE/APAP 5-325MG TABLET ONE (22:58)
[2023-08-09] MEDS: HYDROCODONE/APAP 5-325MG TABLET PO PRN (22:59)
[2023-08-10 00:54] VITALS: BP 137/72; TEMP 98.5; O2SAT 98
[2023-08-10] MEDS: ACETAMINOPHEN 325 MG TABLET PO PRN (05:32)
[2023-08-10] MEDS: PANTOPRAZOLE SODIUM 40 MG TABLET.DR PO SCH (06:09)
[2023-08-10 06:43] VITALS: BP 118/64; TEMP 98.5; O2SAT 95
[2023-08-10 07:37] LABS: HEMOGLOBIN 11.7 g/dL (10.9-14.3); MEAN CORPUSCULAR VOLUME 83.7 fL (75.5-95.3); NEUTROPHILS # (AUTO) 0.2 K/uL (1.8-8.9)
[2023-08-10 07:39] LABS: EOSINOPHILS # (AUTO) 0.1 K/uL (0.0-0.7); EOSINOPHILS % (AUTO) 10.8 % (0.0-7.0); HEMATOCRIT 34.8 % (31.2-41.9); LYMPHOCYTES # (AUTO) 0.5 K/uL (0.8-4.8); LYMPHOCYTES % (AUTO) 56.1 % (20.5-51.5); MEAN CORPUSCULAR HEMOGLOBIN 28.2 uug (24.7-32.8); MEAN CORPUSCULAR HGB CONC 34 g/dL (32.3-35.6); MONOCYTES # (AUTO) 0.2 K/uL (0.1-1.30); MONOCYTES % (AUTO) 16.4 % (0.0-11.0); NEUTROPHILS % (AUTO) 15.7 % (38.5-71.5); PLATELET COUNT (AUTO) 106 K/uL (179-408); RED BLOOD CELL COUNT(AUTO) 4.16 MIL/uL (3.63-4.92); RED CELL DISTRIBUTION WIDTH 15.2 % (12.3-17.7)
[2023-08-10 07:44] LABS: ALBUMIN 3.1 g/dL (3.4-5.0); BILIRUBIN,TOTAL 0.5 mg/dL (0.2-1.0); CALCIUM 8.9 mg/dL (8.5-10.1); CREATININE 0.6 mg/dL (0.6-1.3); MAGNESIUM 1.9 mg/dL (1.8-2.4); PHOSPHOROUS 3.4 mg/dL (2.5-4.9); POTASSIUM 3.9 mmol/L (3.5-5.1); TOTAL PROTEIN, SERUM 6.6 g/dL (6.4-8.2)
[2023-08-10 07:51] VITALS: BP 114/58; TEMP 98; O2SAT 95
[2023-08-10 08:09] LABS: DIFFERENTIAL COMMENT 1
[2023-08-10] MEDS: LISINOPRIL 10 MG TABLET PO ONE (08:59)
[2023-08-10] MEDS: buPROPion XL 150 MG TAB.SR.24H PO SCH (08:59)
[2023-08-10] MEDS: ENOXAPARIN SODIUM 60 MG/0.6 ML DISP.SYRIN SQ SCH (09:01)
[2023-08-10 11:15] VITALS: BP 105/70; TEMP 98; O2SAT 98
[2023-08-10 13:54] LABS: EOSINOPHILS % (MANUAL) 3 % (0-8); LYMPHOCYTES % (MANUAL) 60 % (20-40); MONOCYTES % (MANUAL) 15 % (2-10); NEUTROPHILS % (MANUAL) 22 % (42-75); PLATELET ESTIMATE DECREASED
[2023-08-10 13:55] LABS: ANISOCYTOSIS 1+
[2023-08-10 15:20] VITALS: BP 114/58; TEMP 98.5; O2SAT 95
[2023-08-10 20:09] VITALS: BP 112/55; TEMP 98.9; O2SAT 96
[2023-08-10] MEDS: ATORVASTATIN 10 MG TABLET PO SCH (20:52)
[2023-08-11 00:12] VITALS: BP 120/63; TEMP 98.9; O2SAT 96
[2023-08-11 06:10] VITALS: BP 128/68; TEMP 98.6; O2SAT 95
[2023-08-11 07:24] LABS: CALCIUM 8.8 mg/dL (8.5-10.1); CARBON DIOXIDE 27 mmol/L (21-32); CHLORIDE 100 mmol/L (98-107); CREATININE 0.5 mg/dL (0.6-1.3); GLUCOSE 106 mg/dL (74-106); POTASSIUM 3.8 mmol/L (3.5-5.1); SODIUM SERUM 133 mmol/L (136-145); UREA NITROGEN, BLOOD 10 mg/dL (7-18)
[2023-08-11 07:26] LABS: EOSINOPHILS # (AUTO) 0.1 K/uL (0.0-0.7); MONOCYTES # (AUTO) 0.1 K/uL (0.1-1.30); NEUTROPHILS # (AUTO) 0.2 K/uL (1.8-8.9); PLATELET COUNT (AUTO) 108 K/uL (179-408)
[2023-08-11 07:28] LABS: BASOPHILS % (AUTO) 0.9 % (0.0-2.0); HEMATOCRIT 35.6 % (31.2-41.9); LYMPHOCYTES # (AUTO) 0.7 K/uL (0.8-4.8); MEAN CORPUSCULAR HEMOGLOBIN 28.1 uug (24.7-32.8); MEAN CORPUSCULAR HGB CONC 34 g/dL (32.3-35.6); MEAN CORPUSCULAR VOLUME 83.7 fL (75.5-95.3); MONOCYTES % (AUTO) 8.3 % (0.0-11.0); NEUTROPHILS % (AUTO) 17.8 % (38.5-71.5); RED BLOOD CELL COUNT(AUTO) 4.26 MIL/uL (3.63-4.92); RED CELL DISTRIBUTION WIDTH 15.3 % (12.3-17.7)
[2023-08-11 07:30] LABS: MAGNESIUM 1.8 mg/dL (1.8-2.4); PHOSPHOROUS 3.1 mg/dL (2.5-4.9)
[2023-08-11 07:44] LABS: DIFFERENTIAL COMMENT 1
[2023-08-11 07:48] VITALS: BP 128/73; TEMP 98.6; O2SAT 97
[2023-08-11 12:51] LABS: ANISOCYTOSIS 1+; EOSINOPHILS % (MANUAL) 3 % (0-8); HYPOCHROMASIA 1+; LYMPHOCYTES % (MANUAL) 66 % (20-40); MONOCYTES % (MANUAL) 12 % (2-10); NEUTROPHILS % (MANUAL) 19 % (42-75); PLATELET ESTIMATE DECREASED
[2023-08-11 14:13] VITALS: BP 110/56; TEMP 97.9; O2SAT 98
[2023-08-11 20:00] VITALS: BP 101/45; TEMP 99.5; O2SAT 98
[2023-08-11] MEDS: APIXABAN 5 MG TABLET PO SCH (20:36)
[2023-08-12 06:00] VITALS: BP_SYST 109; BP_SYST 116; BP_DIAS 56; BP_DIAS 65; TEMP 98.5; O2SAT 98
[2023-08-12 07:00] LABS: BASOPHILS % (AUTO) 1.3 % (0.0-2.0); EOSINOPHILS # (AUTO) 0.1 K/uL (0.0-0.7); EOSINOPHILS % (AUTO) 5.9 % (0.0-7.0); HEMATOCRIT 33.5 % (31.2-41.9); HEMOGLOBIN 11.1 g/dL (10.9-14.3); LYMPHOCYTES # (AUTO) 0.7 K/uL (0.8-4.8); MEAN CORPUSCULAR HEMOGLOBIN 27.7 uug (24.7-32.8); MEAN CORPUSCULAR HGB CONC 33 g/dL (32.3-35.6); MEAN CORPUSCULAR VOLUME 83.3 fL (75.5-95.3); MONOCYTES # (AUTO) 0.2 K/uL (0.1-1.30); MONOCYTES % (AUTO) 16.5 % (0.0-11.0); NEUTROPHILS # (AUTO) 0.3 K/uL (1.8-8.9); NEUTROPHILS % (AUTO) 21.3 % (38.5-71.5); PLATELET COUNT (AUTO) 119 K/uL (179-408); RED BLOOD CELL COUNT(AUTO) 4.02 MIL/uL (3.63-4.92)
[2023-08-12 07:06] LABS: CARBON DIOXIDE 28 mmol/L (21-32); CHLORIDE 100 mmol/L (98-107); CREATININE 0.5 mg/dL (0.6-1.3); GLUCOSE 104 mg/dL (74-106); SODIUM SERUM 135 mmol/L (136-145); UREA NITROGEN, BLOOD 10 mg/dL (7-18)
[2023-08-12 07:16] LABS: CALCIUM 8.8 mg/dL (8.5-10.1)
[2023-08-12 07:53] LABS: DIFFERENTIAL COMMENT 1; WHITE BLOOD COUNT (AUTO) 1.3 K/uL (3.8-11.8)
[2023-08-12 10:55] VITALS: BP 106/68; TEMP 98.4; O2SAT 96
[2023-08-12] MEDS ORDERED: APIX5TAB PO ×2 (12:12)
[2023-08-12] MEDS ORDERED: ATOR10TA PO (12:12)
[2023-08-12] MEDS ORDERED: LISI10TA29 PO (12:12)
[2023-08-12] MEDS ORDERED: PANT40TA49 PO (12:12)
[2023-08-12 13:33] LABS: EOSINOPHILS % (MANUAL) 2 % (0-8); LYMPHOCYTES % (MANUAL) 62 % (20-40); MONOCYTES % (MANUAL) 18 % (2-10); NEUTROPHILS % (MANUAL) 18 % (42-75)
[2023-08-12 13:34] LABS: ANISOCYTOSIS 2+; HYPOCHROMASIA 1+; PLATELET ESTIMATE DECREASED
[2023-08-12 13:35] LABS: TEAR DROP CELLS 1+
== END 2023-08-12 14:10 | disposition home or self-care (01) | DRG 300 ==
LOC: ER 16:43 → TELE3 18:00 → MEDSURG3 08-11 18:46
PROVIDERS: ADMIT Internal Medicine; ATTEND Internal Medicine
DX: I82.412 Acute embolism and thrombosis of left femoral vein (principal); C91.Z0 Other lymphoid leukemia not having achieved remission; C95.90 Leukemia, unspecified not having achieved remission; D68.59 Other primary thrombophilia; Z79.620 Long term (current) use of immunosuppressive biologic; Z74.09 Other reduced mobility; E78.5 Hyperlipidemia, unspecified; D69.6 Thrombocytopenia, unspecified; M25.462 Effusion, left knee; Z79.899 Other long term (current) drug therapy; D70.9 Neutropenia, unspecified; I11.9 Hypertensive heart disease without heart failure; S72.142D Displaced intertrochanteric fracture of left femur, subsequent encounter for closed fracture with routine healing; W19.XXXD Unspecified fall, subsequent encounter
CPT/HCPCS: 36415; 70030-TC; 71045; 73560; 83550; 83735; 84100; 85025; 85730; 93005; A4663; G0378; J1650